=== PATIENT | male | born 1945 | race Caucasian/White ===

== ENCOUNTER 2023-11-21 16:52 | Inpatient (IN) ==
[2023-11-21] MEDS ORDERED: IOPAMIDOL 100 ML BOTTLE IV ONE (16:53)
[2023-11-21] MEDS: 0.9 % SODIUM CHLORIDE 1,000 ML IV ONE ×3 (17:05→19:23)
[2023-11-21] MEDS: ACETAMINOPHEN 500 MG TABLET PO ONE (17:07)
[2023-11-21 17:52] LABS: Basophils # (Auto) 0.02 K/mcL (0.00-0.30); Basophils % (Auto) 0.1 % (0.0-2.0); Eosinophils # (Auto) 0.06 K/mcL (0.00-0.70); Eosinophils % (Auto) 0.4 % (0.0-7.0); Hematocrit 37.7 % (40.1-51.0); Hemoglobin 12.3 g/dL (13.7-17.5); Lymphocytes # (Auto) 1.47 K/mcL (1.50-4.80); Lymphocytes % (Auto) 9.8 % (15.5-49.0); Mean Corpuscular HGB Conc 32.6 g/dL (31.0-36.0); Mean Platelet Volume 12.6 fL (8.8-12.5); Monocytes # (Auto) 0.44 K/mcL (0.10-0.90); Monocytes % (Auto) 2.9 % (1.0-12.0); Neutrophils % (Auto) 86.3 % (38.0-78.0); Platelet Count 151 K/mcL (140-440); RBC 3.81 M/mcL (4.63-6.08); Red Cell Distribution Width 12.9 % (11.5-14.5)
[2023-11-21] MEDS: DEXAMETHASONE 10 MG/ML VIAL IV ONE (18:07)
[2023-11-21 18:21] LABS: ALT/SGPT 47 U/L (<40); AST/SGOT 131 U/L (<40); Albumin 3.4 gm/dL (3.2-5.2); Albumin/Globulin Ratio 0.9 (1.0-2.3); Alkaline Phosphatase 60 U/L (39-117); Bilirubin,Total 0.8 mg/dL (0.1-1.0); Blood Urea Nitrogen 28 mg/dL (8-23); Calcium 9.6 mg/dL (8.6-10.4); Carbon Dioxide 14 mmol/L (22-30); Chloride 96 mmol/L (96-108); Globulin 3.6 gm/dL (2.2-3.7); Glomerular Filtration Rate 33; Glucose 209 mg/dL (70-105); Sodium 135 mmol/L (133-145)
[2023-11-21] MEDS: CEFEPIME 2 GM VIAL IV ONE (18:48)
[2023-11-21] MEDS: ASPIRIN 81 MG TAB.CHEW CHEWED ONE (18:48)
[2023-11-21] MEDS: VANCOMYCIN 1,500 MG in 0.9 % SODIUM CHLORIDE 500 ML IV ONE (19:21)
[2023-11-21 19:54] LABS: Blood Urea Nitrogen 28 mg/dL (8-23); Calcium 8.3 mg/dL (8.6-10.4); Carbon Dioxide 14 mmol/L (22-30); Chloride 99 mmol/L (96-108); Glomerular Filtration Rate 36; Glucose 258 mg/dL (70-105); Potassium 3.7 mmol/L (3.3-5.1); Sodium 133 mmol/L (133-145)
[2023-11-21 22:02] LABS: Appearance,Urine Clear (Clear); Bacteria,Urine Mod /hpf (0); Bilirubin,Urine Negative (Negative); Color,Urine Yellow; Culture Indicated,Urine Yes; Glucose,Urine (UA) Negative (Negative); Ketones,Urine 15 mg/dL (Negative); Leukocyte Esterase,Urine Negative /uL (Negative); Nitrate,Urine Negative (Negative); PH,Urine 5.5 (5.0-9.0); Protein,Urine >=300 mg/dL (Negative); Specific Gravity,Urine 1.015 (1.000-1.035); Urine Blood Moderate ery/mcL (Negative); Urine Granular Cast 4 /lph (0-0); Urine RBC 4 /hpf (0-3); Urine Squamous Epithelial Cell 0 /hpf (0-4); Urine WBC 10 /hpf (0-4); Urobilinogen,Urine Normal
[2023-11-21] MEDS: 0.9 % SODIUM CHLORIDE 0 ML ONE (23:36)
[2023-11-21] MEDS ORDERED: DEXTROSE 50% 50 ML VIAL IV PRN (23:36)
[2023-11-21] MEDS ORDERED: ONDANSETRON 4 MG/2 ML VIAL IV PRN (23:36)
[2023-11-21] MEDS ORDERED: ACETAMINOPHEN 325 MG TABLET PO PRN (23:36)
[2023-11-21] MEDS ORDERED: SENNOSIDES 1 TABLET PO PRN (23:36)
[2023-11-21] MEDS ORDERED: POTASSIUM CHLORIDE 40 MEQ in DEXTROSE 5% IN WATER 500 ML IV PRN (23:36)
[2023-11-21] MEDS ORDERED: DEXTROSE 31 GM ORAL.SUSP PO PRN (23:36)
[2023-11-21] MEDS ORDERED: POTASSIUM CHLORIDE 20 MEQ TABLET PO PRN ×2 (23:36)
[2023-11-22] MEDS: SODIUM BICARBONATE 650 MG TABLET PO SCH (00:32)
[2023-11-22] MEDS: ENOXAPARIN 100 MG/ML SYRINGE ONE (00:32)
[2023-11-22] MEDS: FAMOTIDINE 20 MG TABLET PO SCH (00:32)
[2023-11-22] MEDS: cefTRIAXone 1 GM VIAL ONE (00:32)
[2023-11-22] MEDS: FAMOTIDINE 20 MG TABLET PO ONE (00:32)
[2023-11-22] MEDS: ENOXAPARIN 40 MG/0.4 ML SYRINGE SQ SCH (00:33)
[2023-11-22] MEDS: cefTRIAXone 1 GM VIAL IV SCH (00:40)
[2023-11-22] MEDS: 0.9 % SODIUM CHLORIDE 10 ML SYRINGE IV SCH (00:40)
[2023-11-22] MEDS: REMDESIVIR 100 MG in 0.9 % SODIUM CHLORIDE 250 ML IV SCH ×2 (00:43→21:15)
[2023-11-22] MEDS: AZITHROMYCIN 500 MG in DEXTROSE 5% IN WATER 250 ML IV SCH (01:31)
[2023-11-22] MEDS: REMDESIVIR 200 MG in 0.9 % SODIUM CHLORIDE 250 ML IV ONE (02:59)
[2023-11-22 05:47] LABS: Basophils # (Auto) 0.01 K/mcL (0.00-0.30); Basophils % (Auto) 0.1 % (0.0-2.0); Eosinophils # (Auto) 0 K/mcL (0.00-0.70); Eosinophils % (Auto) 0 % (0.0-7.0); Hematocrit 34.5 % (40.1-51.0); Hemoglobin 10.8 g/dL (13.7-17.5); Lymphocytes # (Auto) 0.34 K/mcL (1.50-4.80); Lymphocytes % (Auto) 4.5 % (15.5-49.0); Mean Cell Volume 102.4 fL (80.0-100.0); Mean Corpuscular HGB Conc 31.3 g/dL (31.0-36.0); Monocytes % (Auto) 1.3 % (1.0-12.0); Neutrophils % (Auto) 93.6 % (38.0-78.0); Platelet Count 122 K/mcL (140-440); RBC 3.37 M/mcL (4.63-6.08); WBC 7.6 K/mcL (4.5-11.0)
[2023-11-22 06:08] LABS: ALT/SGPT 42 U/L (<40); AST/SGOT 80 U/L (<40); Albumin/Globulin Ratio 1.4 (1.0-2.3); Alkaline Phosphatase 45 U/L (39-117); Bilirubin,Direct < 0.2 mg/dL (0-0.3); Bilirubin,Total 0.2 mg/dL (0.1-1.0); Blood Urea Nitrogen 31 mg/dL (8-23); Calcium 8.2 mg/dL (8.6-10.4); Carbon Dioxide 20 mmol/L (22-30); Chloride 104 mmol/L (96-108); Globulin 2.1 gm/dL (2.2-3.7); Glomerular Filtration Rate 41; Glucose 276 mg/dL (70-105); Lactate Dehydrogenase 215 U/L (135-225); Phosphorous 2.9 mg/dL (2.5-4.5); Potassium 4.3 mmol/L (3.3-5.1); Sodium 140 mmol/L (133-145); Triglycerides 175 mg/dL (<150); Uric Acid 6.7 mg/dL (2.5-8.0)
[2023-11-22 06:23] LABS: Estimated Average Glucose(eAG) 154 mg/dL
[2023-11-22] MEDS: MAGNESIUM SULFATE 2 GM/50 ML BAG IV PRN (08:10)
[2023-11-22] MEDS: DOCUSATE SODIUM 100 MG CAPSULE PO SCH (08:38)
[2023-11-22] MEDS: DEXAMETHASONE 4 MG TABLET PO SCH (08:38)
[2023-11-22] MEDS: INSULIN LISPRO 1 UNIT/0.01 ML UNIT SQ SCH (08:38)
[2023-11-22] MEDS ORDERED: CARBOXYMETHYLCELLULOSE SODIUM 1 EACH DROPER.GEL OP PRN (09:50)
[2023-11-22] MEDS ORDERED: HYDROcodone/APAP 5/325MG TABLET PO PRN (09:50)
[2023-11-22] MEDS: INSULIN GLARGINE, HUMAN 1 UNIT/0.01 ML SQ SCH (09:56)
[2023-11-22] MEDS: GABAPENTIN 400 MG CAPSULE PO SCH (15:55)
[2023-11-22] MEDS: ENOXAPARIN 80 MG/0.8 ML SYRINGE SQ SCH (21:15)
[2023-11-22] MEDS: TAMSULOSIN 0.4 MG CAPSULE PO SCH (21:16)
[2023-11-22] MEDS: ATORVASTATIN 10 MG TABLET PO SCH (21:16)
[2023-11-22] MEDS: FLUTICASONE/SALMETEROL 250/50 INHALER #14 INH SCH (21:17)
[2023-11-23] MEDS: IPRATROPIUM/ALBUTEROL 3 ML AMPUL.NEB NEB PRN (05:54)
[2023-11-23] MEDS: INSULIN GLARGINE, HUMAN 1 UNIT/0.01 ML SQ SCH (08:46)
[2023-11-23] MEDS: AZITHROMYCIN 250 MG TABLET PO SCH (08:48)
[2023-11-23 08:52] LABS: Basophils # (Auto) 0 K/mcL (0.00-0.30); Basophils % (Auto) 0 % (0.0-2.0); Eosinophils # (Auto) 0 K/mcL (0.00-0.70); Eosinophils % (Auto) 0 % (0.0-7.0); Hematocrit 35.1 % (40.1-51.0); Hemoglobin 11.4 g/dL (13.7-17.5); Lymphocytes # (Auto) 0.37 K/mcL (1.50-4.80); Lymphocytes % (Auto) 2.5 % (15.5-49.0); Mean Cell Volume 98.9 fL (80.0-100.0); Mean Corpuscular HGB Conc 32.5 g/dL (31.0-36.0); Mean Platelet Volume 11.7 fL (8.8-12.5); Monocytes # (Auto) 0.24 K/mcL (0.10-0.90); Monocytes % (Auto) 1.6 % (1.0-12.0); Neutrophils % (Auto) 95.5 % (38.0-78.0); Platelet Count 191 K/mcL (140-440); RBC 3.55 M/mcL (4.63-6.08); Red Cell Distribution Width 13.1 % (11.5-14.5); WBC 14.9 K/mcL (4.5-11.0)
[2023-11-23 09:19] LABS: ALT/SGPT 43 U/L (<40); AST/SGOT 48 U/L (<40); Albumin 3.2 gm/dL (3.2-5.2); Albumin/Globulin Ratio 1.4 (1.0-2.3); Alkaline Phosphatase 54 U/L (39-117); Bilirubin,Direct < 0.2 mg/dL (0-0.3); Bilirubin,Total 0.3 mg/dL (0.1-1.0); Blood Urea Nitrogen 34 mg/dL (8-23); Calcium 8.5 mg/dL (8.6-10.4); Carbon Dioxide 18 mmol/L (22-30); Chloride 101 mmol/L (96-108); Globulin 2.3 gm/dL (2.2-3.7); Glomerular Filtration Rate 58; Glucose 262 mg/dL (70-105); Lactate Dehydrogenase 232 U/L (135-225); Phosphorous 2.2 mg/dL (2.5-4.5); Potassium 3.7 mmol/L (3.3-5.1); Sodium 137 mmol/L (133-145); Triglycerides 143 mg/dL (<150); Uric Acid 7.3 mg/dL (2.5-8.0)
[2023-11-23] MEDS: SODIUM BICARBONATE 650 MG TABLET PO SCH (09:56)
[2023-11-23 10:13] LABS: Lymphocytes % 1 % (15-49); Monocytes % (Manual) 1 % (1-12); Platelet Estimate NORMAL (Normal); RBC Morphology NORMAL (Normal); Segmented Neutrophils % 98 % (38-78)
[2023-11-23] MEDS: guaiFENesin/CODEINE 10 ML UDC PO PRN (10:25)
[2023-11-23] MEDS: ENOXAPARIN 80 MG/0.8 ML SYRINGE SQ SCH (10:25)
[2023-11-24 06:03] LABS: Basophils # (Auto) 0.01 K/mcL (0.00-0.30); Basophils % (Auto) 0.1 % (0.0-2.0); Eosinophils # (Auto) 0 K/mcL (0.00-0.70); Eosinophils % (Auto) 0 % (0.0-7.0); Hematocrit 31.5 % (40.1-51.0); Hemoglobin 10.4 g/dL (13.7-17.5); Lymphocytes # (Auto) 0.33 K/mcL (1.50-4.80); Lymphocytes % (Auto) 3.2 % (15.5-49.0); Mean Cell Volume 97.2 fL (80.0-100.0); Mean Platelet Volume 11.8 fL (8.8-12.5); Monocytes # (Auto) 0.31 K/mcL (0.10-0.90); Platelet Count 199 K/mcL (140-440); RBC 3.24 M/mcL (4.63-6.08); Red Cell Distribution Width 13.1 % (11.5-14.5); WBC 10.4 K/mcL (4.5-11.0)
[2023-11-24 06:44] LABS: ALT/SGPT 37 U/L (<40); AST/SGOT 28 U/L (<40); Albumin 2.8 gm/dL (3.2-5.2); Alkaline Phosphatase 52 U/L (39-117); Bilirubin,Direct < 0.2 mg/dL (0-0.3); Bilirubin,Total 0.3 mg/dL (0.1-1.0); Blood Urea Nitrogen 32 mg/dL (8-23); Calcium 8.8 mg/dL (8.6-10.4); Carbon Dioxide 21 mmol/L (22-30); Chloride 105 mmol/L (96-108); Globulin 2.9 gm/dL (2.2-3.7); Glomerular Filtration Rate 73; Glucose 305 mg/dL (70-105); Lactate Dehydrogenase 207 U/L (135-225); Phosphorous 2.3 mg/dL (2.5-4.5); Potassium 3.9 mmol/L (3.3-5.1); Sodium 139 mmol/L (133-145); Triglycerides 109 mg/dL (<150); Uric Acid 7.3 mg/dL (2.5-8.0)
[2023-11-24] MEDS: FUROSEMIDE 40 MG/4 ML VIAL IV ONE (11:18)
[2023-11-24] MEDS: ALBUMIN HUMAN 12.5 GM/50 ML VIAL IV ONE (11:18)
[2023-11-25 07:13] LABS: ALT/SGPT 49 U/L (<40); AST/SGOT 29 U/L (<40); Albumin 3.2 gm/dL (3.2-5.2); Albumin/Globulin Ratio 1.5 (1.0-2.3); Alkaline Phosphatase 57 U/L (39-117); Bilirubin,Direct < 0.2 mg/dL (0-0.3); Bilirubin,Total 0.3 mg/dL (0.1-1.0); Blood Urea Nitrogen 36 mg/dL (8-23); Carbon Dioxide 23 mmol/L (22-30); Chloride 105 mmol/L (96-108); Globulin 2.2 gm/dL (2.2-3.7); Glomerular Filtration Rate 65; Glucose 215 mg/dL (70-105); Lactate Dehydrogenase 253 U/L (135-225); Phosphorous 2.9 mg/dL (2.5-4.5); Potassium 4.2 mmol/L (3.3-5.1); Sodium 142 mmol/L (133-145); Triglycerides 105 mg/dL (<150); Uric Acid 7.5 mg/dL (2.5-8.0)
[2023-11-25 07:26] LABS: Basophils # (Auto) 0.03 K/mcL (0.00-0.30); Basophils % (Auto) 0.3 % (0.0-2.0); Eosinophils # (Auto) 0 K/mcL (0.00-0.70); Eosinophils % (Auto) 0 % (0.0-7.0); Hematocrit 32.7 % (40.1-51.0); Hemoglobin 10.6 g/dL (13.7-17.5); Lymphocytes # (Auto) 0.61 K/mcL (1.50-4.80); Mean Cell Volume 99.1 fL (80.0-100.0); Mean Corpuscular HGB Conc 32.4 g/dL (31.0-36.0); Mean Platelet Volume 11.9 fL (8.8-12.5); Monocytes # (Auto) 0.37 K/mcL (0.10-0.90); Monocytes % (Auto) 3.7 % (1.0-12.0); Neutrophils % (Auto) 88.2 % (38.0-78.0); Platelet Count 252 K/mcL (140-440); WBC 10.1 K/mcL (4.5-11.0)
[2023-11-25] MEDS: IPRATROPIUM/ALBUTEROL 3 ML AMPUL.NEB NEB SCH (13:05)
[2023-11-25] MEDS: POLYETHYLENE GLYCOL 3350 17 GM PACKET PO PRN (17:28)
[2023-11-26 06:52] LABS: Basophils # (Auto) 0.02 K/mcL (0.00-0.30); Basophils % (Auto) 0.2 % (0.0-2.0); Eosinophils % (Auto) 0.9 % (0.0-7.0); Hematocrit 34.1 % (40.1-51.0); Hemoglobin 10.9 g/dL (13.7-17.5); Lymphocytes # (Auto) 1.06 K/mcL (1.50-4.80); Lymphocytes % (Auto) 9.8 % (15.5-49.0); Mean Cell Volume 100.6 fL (80.0-100.0); Mean Platelet Volume 11.4 fL (8.8-12.5); Monocytes # (Auto) 0.45 K/mcL (0.10-0.90); Monocytes % (Auto) 4.2 % (1.0-12.0); Neutrophils % (Auto) 80.7 % (38.0-78.0); Platelet Count 308 K/mcL (140-440); RBC 3.39 M/mcL (4.63-6.08); WBC 10.8 K/mcL (4.5-11.0)
[2023-11-26 07:15] LABS: ALT/SGPT 53 U/L (<40); AST/SGOT 23 U/L (<40); Albumin 3.1 gm/dL (3.2-5.2); Albumin/Globulin Ratio 1.4 (1.0-2.3); Alkaline Phosphatase 56 U/L (39-117); Bilirubin,Direct < 0.2 mg/dL (0-0.3); Bilirubin,Total 0.3 mg/dL (0.1-1.0); Blood Urea Nitrogen 29 mg/dL (8-23); Calcium 8.6 mg/dL (8.6-10.4); Carbon Dioxide 25 mmol/L (22-30); Chloride 104 mmol/L (96-108); Globulin 2.2 gm/dL (2.2-3.7); Glomerular Filtration Rate 73; Glucose 237 mg/dL (70-105); Lactate Dehydrogenase 263 U/L (135-225); Phosphorous 3.6 mg/dL (2.5-4.5); Potassium 3.9 mmol/L (3.3-5.1); Sodium 142 mmol/L (133-145); Triglycerides 103 mg/dL (<150); Uric Acid 6.9 mg/dL (2.5-8.0)
[2023-11-26] MEDS: ENOXAPARIN 40 MG/0.4 ML SYRINGE SQ SCH (11:32)
[2023-11-26] MEDS: IPRATROPIUM/ALBUTEROL 3 ML AMPUL.NEB NEB SCH (14:39)
[2023-11-26] MEDS: FUROSEMIDE 40 MG/4 ML VIAL IV ONE ×2 (17:32→17:55)
[2023-11-27 07:12] LABS: Basophils # (Auto) 0.02 K/mcL (0.00-0.30); Basophils % (Auto) 0.2 % (0.0-2.0); Eosinophils # (Auto) 0.19 K/mcL (0.00-0.70); Eosinophils % (Auto) 1.7 % (0.0-7.0); Hematocrit 34.7 % (40.1-51.0); Hemoglobin 11.4 g/dL (13.7-17.5); Lymphocytes # (Auto) 1.04 K/mcL (1.50-4.80); Lymphocytes % (Auto) 9.1 % (15.5-49.0); Mean Corpuscular HGB Conc 32.9 g/dL (31.0-36.0); Mean Platelet Volume 11.6 fL (8.8-12.5); Monocytes # (Auto) 0.48 K/mcL (0.10-0.90); Monocytes % (Auto) 4.2 % (1.0-12.0); Neutrophils % (Auto) 78.8 % (38.0-78.0); Platelet Count 355 K/mcL (140-440); RBC 3.54 M/mcL (4.63-6.08); Red Cell Distribution Width 12.8 % (11.5-14.5); WBC 11.4 K/mcL (4.5-11.0)
[2023-11-27 08:05] LABS: ALT/SGPT 45 U/L (<40); AST/SGOT 17 U/L (<40); Albumin 3.1 gm/dL (3.2-5.2); Alkaline Phosphatase 59 U/L (39-117); Bilirubin,Direct < 0.2 mg/dL (0-0.3); Bilirubin,Total 0.4 mg/dL (0.1-1.0); Blood Urea Nitrogen 24 mg/dL (8-23); Calcium 9.1 mg/dL (8.6-10.4); Carbon Dioxide 26 mmol/L (22-30); Chloride 101 mmol/L (96-108); Globulin 3.1 gm/dL (2.2-3.7); Glomerular Filtration Rate 82; Glucose 232 mg/dL (70-105); Lactate Dehydrogenase 259 U/L (135-225); Phosphorous 3.6 mg/dL (2.5-4.5); Potassium 3.5 mmol/L (3.3-5.1); Sodium 141 mmol/L (133-145); Triglycerides 91 mg/dL (<150); Uric Acid 6.4 mg/dL (2.5-8.0)
[2023-11-28 06:55] LABS: Basophils # (Auto) 0.02 K/mcL (0.00-0.30); Basophils % (Auto) 0.2 % (0.0-2.0); Eosinophils # (Auto) 0.33 K/mcL (0.00-0.70); Eosinophils % (Auto) 2.8 % (0.0-7.0); Hematocrit 35.2 % (40.1-51.0); Hemoglobin 11.3 g/dL (13.7-17.5); Lymphocytes # (Auto) 1.33 K/mcL (1.50-4.80); Lymphocytes % (Auto) 11.5 % (15.5-49.0); Mean Corpuscular HGB Conc 32.1 g/dL (31.0-36.0); Mean Platelet Volume 11.2 fL (8.8-12.5); Monocytes % (Auto) 4.3 % (1.0-12.0); Neutrophils % (Auto) 75.2 % (38.0-78.0); Platelet Count 369 K/mcL (140-440); RBC 3.52 M/mcL (4.63-6.08); WBC 11.6 K/mcL (4.5-11.0)
[2023-11-28 07:24] LABS: ALT/SGPT 37 U/L (<40); AST/SGOT 19 U/L (<40); Albumin 3.1 gm/dL (3.2-5.2); Albumin/Globulin Ratio 1.1 (1.0-2.3); Alkaline Phosphatase 57 U/L (39-117); Bilirubin,Direct < 0.2 mg/dL (0-0.3); Bilirubin,Total 0.4 mg/dL (0.1-1.0); Blood Urea Nitrogen 24 mg/dL (8-23); Calcium 8.9 mg/dL (8.6-10.4); Carbon Dioxide 29 mmol/L (22-30); Chloride 102 mmol/L (96-108); Globulin 2.9 gm/dL (2.2-3.7); Glomerular Filtration Rate 73; Glucose 183 mg/dL (70-105); Lactate Dehydrogenase 262 U/L (135-225); Phosphorous 3.5 mg/dL (2.5-4.5); Potassium 3.9 mmol/L (3.3-5.1); Sodium 141 mmol/L (133-145); Triglycerides 91 mg/dL (<150); Uric Acid 6.1 mg/dL (2.5-8.0)
[2023-11-28 10:21] LABS: HDL Cholesterol 31 mg/dL (>40); LDL Cholesterol,Calculated 29 mg/dL (<100); Non-HDL Cholesterol 47 mg/dL (<130); Triglycerides 95 mg/dL (<150)
[2023-11-29 06:43] LABS: Basophils # (Auto) 0.01 K/mcL (0.00-0.30); Basophils % (Auto) 0.1 % (0.0-2.0); Eosinophils # (Auto) 0.28 K/mcL (0.00-0.70); Eosinophils % (Auto) 2.4 % (0.0-7.0); Hematocrit 37.6 % (40.1-51.0); Lymphocytes # (Auto) 1.36 K/mcL (1.50-4.80); Lymphocytes % (Auto) 11.8 % (15.5-49.0); Mean Cell Volume 100.3 fL (80.0-100.0); Mean Corpuscular HGB Conc 31.9 g/dL (31.0-36.0); Mean Platelet Volume 11.2 fL (8.8-12.5); Monocytes # (Auto) 0.48 K/mcL (0.10-0.90); Monocytes % (Auto) 4.2 % (1.0-12.0); Neutrophils % (Auto) 75.2 % (38.0-78.0); Platelet Count 367 K/mcL (140-440); RBC 3.75 M/mcL (4.63-6.08); WBC 11.5 K/mcL (4.5-11.0)
[2023-11-29 07:00] LABS: C-Reactive Protein 2.61 mg/dL (0.03-0.80)
[2023-11-29 07:33] LABS: Blood Urea Nitrogen 24 mg/dL (8-23); Calcium 9.2 mg/dL (8.6-10.4); Carbon Dioxide 28 mmol/L (22-30); Chloride 103 mmol/L (96-108); Glomerular Filtration Rate 82; Glucose 175 mg/dL (70-105); Potassium 3.9 mmol/L (3.3-5.1); Sodium 141 mmol/L (133-145)
== END 2023-11-29 11:20 | disposition home or self-care (01) | DRG 871 ==
LOC: ED 16:52 → MEDSUR 23:23
PROVIDERS: ADMIT Internal Medicine; ATTEND Internal Medicine

== ENCOUNTER 2024-11-09 12:17 | Inpatient (IN) ==
[2024-11-09] MEDS ORDERED: IOPAMIDOL 100 ML BOTTLE IV ONE (12:18)
[2024-11-09] MEDS: IPRATROPIUM/ALBUTEROL 3 ML AMPUL.NEB NEB ONE ×2 (12:41→20:30)
[2024-11-09] MEDS: 0.9 % SODIUM CHLORIDE 1,000 ML IV ONE (12:46)
[2024-11-09] MEDS: LACTATED RINGERS 1,000 ML IV ONE (14:35)
[2024-11-09] MEDS: cefTRIAXone 1 GM VIAL IV SCH (14:57)
[2024-11-09 15:04] LABS: Basophils # (Auto) 0.02 K/mcL (0.00-0.30); Basophils % (Auto) 0.2 % (0.0-2.0); Eosinophils # (Auto) 0.13 K/mcL (0.00-0.70); Eosinophils % (Auto) 1.4 % (0.0-7.0); Hematocrit 40.3 % (40.1-51.0); Hemoglobin 12.4 g/dL (13.7-17.5); Lymphocytes # (Auto) 1.26 K/mcL (1.50-4.80); Lymphocytes % (Auto) 13.7 % (15.5-49.0); Mean Corpuscular HGB Conc 30.8 g/dL (31.0-36.0); Monocytes # (Auto) 0.71 K/mcL (0.10-0.90); Monocytes % (Auto) 7.7 % (1.0-12.0); Neutrophils % (Auto) 76.7 % (38.0-78.0); Platelet Count 113 K/mcL (140-440); RBC 3.82 M/mcL (4.63-6.08); WBC 9.2 K/mcL (4.5-11.0)
[2024-11-09] MEDS: DEXTROSE 5% IN WATER 0 ML IV ONE (15:04)
[2024-11-09] MEDS: DOXYCYCLINE 100 MG in DEXTROSE 5% IN WATER 100 ML IV ONE (15:08)
[2024-11-09 15:21] LABS: Anion Gap 13.0 (8.0-16.0); Blood Urea Nitrogen 17 mg/dL (8-23); Calcium 8.8 mg/dL (8.6-10.4); Carbon Dioxide 23 mmol/L (22-30); Chloride 101 mmol/L (96-108); Glucose 149 mg/dL (70-105); Potassium 4.3 mmol/L (3.3-5.1); Sodium 137 mmol/L (133-145)
[2024-11-09] MEDS: ONDANSETRON 4 MG/2 ML VIAL IV ONE (16:27)
[2024-11-09] MEDS: ACETAMINOPHEN 1,000 MG/100 ML BAG IV ONE (16:42)
[2024-11-09] MEDS: OSELTAMIVIR PHOSPHATE 75 MG CAPSULE PO ONE (16:42)
[2024-11-09 16:58] LABS: Bacteria,Urine Rare /hpf (0); Bilirubin,Urine Negative (Negative); Color,Urine Yellow; Glucose,Urine (UA) Negative (Negative); Ketones,Urine Negative (Negative); Leukocyte Esterase,Urine Negative /uL (Negative); PH,Urine 7.0 (5.0-9.0); Protein,Urine 100 mg/dL (Negative); Specific Gravity,Urine 1.015 (1.000-1.035); Urobilinogen,Urine Normal
[2024-11-09] MEDS ORDERED: PROCHLORPERAZINE 10 MG/2 ML VIAL IV PRN (19:56)
[2024-11-09] MEDS ORDERED: ONDANSETRON 4 MG/2 ML VIAL IV PRN (19:56)
[2024-11-09] MEDS: IPRATROPIUM/ALBUTEROL 3 ML AMPUL.NEB NEB SCH (20:33)
[2024-11-09] MEDS: LACTATED RINGERS 1,000 ML IV SCH (20:56)
[2024-11-09] MEDS: 0.9 % SODIUM CHLORIDE 10 ML SYRINGE IV SCH (20:57)
[2024-11-09] MEDS: DOXYCYCLINE 100 MG in DEXTROSE 5% IN WATER 100 ML IV SCH (21:10)
[2024-11-09] MEDS: OSELTAMIVIR PHOSPHATE 75 MG CAPSULE PO SCH (22:03)
[2024-11-09] MEDS: MELATONIN 3 MG TABLET PO SCH (22:03)
[2024-11-09] MEDS: NEUTRA PHOS 1 PACKET PO ONE (22:44)
[2024-11-09] MEDS: NEUTRA PHOS 1 PACKET ONE (22:45)
[2024-11-09] MEDS: ACETAMINOPHEN 1,000 MG/100 ML BAG IV PRN (23:22)
[2024-11-09] MEDS: SODIUM PHOSPHATE 30 MMOL in DEXTROSE 5% IN WATER 500 ML IV ONE (23:23)
[2024-11-10 06:52] LABS: Basophils # (Auto) 0.01 K/mcL (0.00-0.30); Basophils % (Auto) 0.1 % (0.0-2.0); Eosinophils # (Auto) 0.10 K/mcL (0.00-0.70); Eosinophils % (Auto) 1.4 % (0.0-7.0); Hematocrit 35.1 % (40.1-51.0); Hemoglobin 11.1 g/dL (13.7-17.5); Lymphocytes # (Auto) 0.64 K/mcL (1.50-4.80); Lymphocytes % (Auto) 8.8 % (15.5-49.0); Mean Corpuscular HGB Conc 31.6 g/dL (31.0-36.0); Monocytes # (Auto) 0.51 K/mcL (0.10-0.90); Monocytes % (Auto) 7.0 % (1.0-12.0); Neutrophils % (Auto) 82.6 % (38.0-78.0); Platelet Count 113 K/mcL (140-440); RBC 3.44 M/mcL (4.63-6.08); WBC 7.3 K/mcL (4.5-11.0)
[2024-11-10 07:11] LABS: Phosphorous 3.2 mg/dL (2.5-4.5)
[2024-11-10 07:53] LABS: ALT/SGPT 9 U/L (<40); AST/SGOT 16 U/L (<40); Albumin 3.4 gm/dL (3.2-5.2); Albumin/Globulin Ratio 1.2 (1.0-2.3); Alkaline Phosphatase 52 U/L (39-117); Anion Gap 11.0 (8.0-16.0); Bilirubin,Total 0.4 mg/dL (0.1-1.0); Blood Urea Nitrogen 13 mg/dL (8-23); Calcium 8.4 mg/dL (8.6-10.4); Carbon Dioxide 24 mmol/L (22-30); Chloride 101 mmol/L (96-108); Globulin 2.8 gm/dL (2.2-3.7); Glucose 160 mg/dL (70-105); Potassium 4.4 mmol/L (3.3-5.1); Sodium 136 mmol/L (133-145)
[2024-11-10] MEDS: ENOXAPARIN 40 MG/0.4 ML SYRINGE SQ SCH (08:21)
[2024-11-10] MEDS: cefTRIAXone 2 GM in DEXTROSE 5% IN WATER 50 ML IV SCH (08:21)
[2024-11-10] MEDS ORDERED: cefTRIAXone 1 GM VIAL IV SCH (09:00)
[2024-11-10] MEDS: IPRATROPIUM/ALBUTEROL 3 ML AMPUL.NEB NEB PRN (19:03)
[2024-11-10] MEDS ORDERED: CARBOXYMETHYLCELLULOSE SODIUM 1 EACH DROPER.GEL OP PRN (20:09)
[2024-11-10] MEDS: TAMSULOSIN 0.4 MG CAPSULE PO SCH (21:50)
[2024-11-10] MEDS: GABAPENTIN 400 MG CAPSULE PO SCH (21:50)
[2024-11-10] MEDS: ATORVASTATIN 10 MG TABLET PO SCH (21:50)
[2024-11-10] MEDS: OMEPRAZOLE 20 MG CAPSULE PO SCH (21:50)
[2024-11-11] MEDS: IPRATROPIUM/ALBUTEROL 3 ML AMPUL.NEB NEB SCH ×2 (06:48→20:05)
[2024-11-11 07:01] LABS: Basophils # (Auto) 0.01 K/mcL (0.00-0.30); Basophils % (Auto) 0.2 % (0.0-2.0); Eosinophils # (Auto) 0.22 K/mcL (0.00-0.70); Eosinophils % (Auto) 3.7 % (0.0-7.0); Hematocrit 32.3 % (40.1-51.0); Hemoglobin 10.4 g/dL (13.7-17.5); Lymphocytes # (Auto) 0.80 K/mcL (1.50-4.80); Lymphocytes % (Auto) 13.4 % (15.5-49.0); Mean Corpuscular HGB Conc 32.2 g/dL (31.0-36.0); Monocytes # (Auto) 0.46 K/mcL (0.10-0.90); Monocytes % (Auto) 7.7 % (1.0-12.0); Neutrophils % (Auto) 74.8 % (38.0-78.0); Platelet Count 138 K/mcL (140-440); RBC 3.21 M/mcL (4.63-6.08); WBC 6.0 K/mcL (4.5-11.0)
[2024-11-11 07:21] LABS: ALT/SGPT 11 U/L (<40); AST/SGOT 16 U/L (<40); Albumin 3.2 gm/dL (3.2-5.2); Albumin/Globulin Ratio 1.2 (1.0-2.3); Alkaline Phosphatase 57 U/L (39-117); Anion Gap 12.0 (8.0-16.0); Bilirubin,Total 0.4 mg/dL (0.1-1.0); Blood Urea Nitrogen 14 mg/dL (8-23); C-Reactive Protein 33.60 mg/dL (0.03-0.80); Calcium 8.7 mg/dL (8.6-10.4); Carbon Dioxide 23 mmol/L (22-30); Chloride 102 mmol/L (96-108); Globulin 2.7 gm/dL (2.2-3.7); Glucose 148 mg/dL (70-105); Potassium 3.9 mmol/L (3.3-5.1); Sodium 137 mmol/L (133-145)
[2024-11-11] MEDS: VITAMIN D3 125 MCG TABLET PO SCH (08:08)
[2024-11-11] MEDS: OMEPRAZOLE 20 MG CAPSULE PO SCH (08:08)
[2024-11-11] MEDS: CETIRIZINE 10 MG TABLET PO SCH (08:08)
[2024-11-11] MEDS: INSULIN GLARGINE, HUMAN 1 UNIT/0.01 ML SQ SCH (08:26)
[2024-11-11] MEDS ORDERED: MELATONIN 3 MG TABLET PO PRN (09:54)
[2024-11-11] MEDS: POLYETHYLENE GLYCOL 3350 17 GM PACKET PO PRN (12:10)
[2024-11-11] MEDS: BENZONATATE 100 MG CAPSULE PO SCH (16:33)
[2024-11-11] MEDS: guaiFENesin 600 MG TAB.SR.12H PO PRN (16:35)
[2024-11-11] MEDS: DOXYCYCLINE HYCLATE 100 MG TABLET.ORL PO SCH (20:09)
[2024-11-11] MEDS: CEFDINIR 300 MG CAPSULE PO SCH (20:09)
[2024-11-11] MEDS: SENNOSIDES 1 TABLET PO PRN (20:34)
[2024-11-12 06:50] LABS: ALT/SGPT 20 U/L (<40); AST/SGOT 20 U/L (<40); Albumin 3.3 gm/dL (3.2-5.2); Albumin/Globulin Ratio 1.2 (1.0-2.3); Alkaline Phosphatase 68 U/L (39-117); Anion Gap 11.0 (8.0-16.0); Bilirubin,Total 0.3 mg/dL (0.1-1.0); Blood Urea Nitrogen 14 mg/dL (8-23); C-Reactive Protein 18.60 mg/dL (0.03-0.80); Calcium 9.3 mg/dL (8.6-10.4); Carbon Dioxide 25 mmol/L (22-30); Chloride 105 mmol/L (96-108); Globulin 2.8 gm/dL (2.2-3.7); Glucose 182 mg/dL (70-105); Potassium 4.0 mmol/L (3.3-5.1); Sodium 141 mmol/L (133-145)
[2024-11-12 07:54] LABS: Basophils # (Auto) 0.02 K/mcL (0.00-0.30); Basophils % (Auto) 0.4 % (0.0-2.0); Eosinophils # (Auto) 0.22 K/mcL (0.00-0.70); Eosinophils % (Auto) 4.8 % (0.0-7.0); Hematocrit 34.4 % (40.1-51.0); Hemoglobin 10.9 g/dL (13.7-17.5); Lymphocytes # (Auto) 0.85 K/mcL (1.50-4.80); Lymphocytes % (Auto) 18.5 % (15.5-49.0); Mean Corpuscular HGB Conc 31.7 g/dL (31.0-36.0); Monocytes # (Auto) 0.28 K/mcL (0.10-0.90); Monocytes % (Auto) 6.1 % (1.0-12.0); Neutrophils % (Auto) 70.0 % (38.0-78.0); Platelet Count 173 K/mcL (140-440); RBC 3.44 M/mcL (4.63-6.08); WBC 4.6 K/mcL (4.5-11.0)
[2024-11-12 13:57] VITALS: TEMP 98.5; O2SAT 95
== END 2024-11-12 14:10 | disposition home or self-care (01) | DRG 193 ==
LOC: ED 12:17 → MEDSUR 19:45
PROVIDERS: ADMIT Student in an Organized Health Care Education/Training Program; ATTEND Student in an Organized Health Care Education/Training Program